=== PATIENT | female | born 1995 | race African-American/Black ===

== ENCOUNTER 2023-10-07 13:41 | Emergency (ER) | payer OTHER ==
[~2023-10-07] VITALS: Ht 160 cm; Wt 77.0 kg
[2023-10-07 13:42] VITALS: BP 142/80; TEMP 99.1; O2SAT 100
[2023-10-07] MEDS ORDERED: IBUP-1022 PO (17:05)
[2023-10-07] MEDS ORDERED: IBUPROFEN 600MG TAB PO ONE (17:10)
== END 2023-10-07 17:41 | disposition home or self-care (01) ==
LOC: M ED 13:41
DX: S43.402A Unspecified sprain of left shoulder joint, initial encounter (principal); S63.502A Unspecified sprain of left wrist, initial encounter; S53.402A Unspecified sprain of left elbow, initial encounter; W00.0XXA Fall on same level due to ice and snow, initial encounter; Y92.9 Unspecified place or not applicable; Y93.9 Activity, unspecified; Y99.0 Civilian activity done for income or pay; Z79.1 Long term (current) use of non-steroidal anti-inflammatories (NSAID)